=== PATIENT | female | born 2000 | race Caucasian/White ===

== ENCOUNTER 2023-06-13 11:05 | Emergency (ER) | payer SELFPAY ==
[2023-06-13 11:27] VITALS: BP 156/85; PULSE 96; RESP 16; TEMP 36.6; O2SAT 97; BMI 38.9
--- NOTE | 2023-06-13 11:29 | ED_ITS ---
HPI - General Adult General Chief complaint: General Medical Stated complaint: Headache/Back pain Time Seen by Provider: 06/13/23 13:36 Source: patient Mode of arrival: ambulatory Limitations: no limitations History of Present Illness HPI narrative: patient reports intermittent headaches, light sensitivity, nausea, nasal congestion and sneezing and lower back pain X2 days. patient reports history of similar headaches associated with nausea and light sensitivity in the past. patient notes history of lumbar spine compression fracture in the past. she reports that lower back pain occasionally flares up. she has been taking ibuprofen for her symptoms. she did not take any today. patient describes her headache as tight band on her head . she denies fever, neck pain, vomiting, cough, sore throat, ear pain, chest pain, shortness of breath, abdominal pain, urinary symptoms, numbness/tingling/ weakness of lower extremities, saddle parasthesia, changes in bowel or bladder function. her LMP was 06/09/2023. patie nt denies any known sick contacts. Related Data Previous Rx's ?Medication ?Instructions ?Recorded ondansetron 4 mg disintegrating 4 mg PO Q8H #10 tabs 06/13/23 tablet Allergies Allergy/AdvReac Type Severity Reaction Status Date / Time amoxicillin AdvReac Hives Verified 06/13/23 11:29 Review of Systems Review of Systems: as noted in HPI Yes all other systems are reviewed and are negative [facility] Social History Social History Advance Directives: No Advance Directives Information Provided: Yes Do you have a plan to hurt others: No Plan Physical Exam ED Vital Signs: Vital Signs - 24 hr 06/13/23 11:27 06/13/23 15:14 06/13/23 16:38 Temperature 97.8 F 98.2 F 98.3 F Pulse Rate 96 71 82 Respiratory Rate 16 16 16 Blood Pressure 156/85 H 115/81 136/76 Pulse Oximetry 97 100 98 Oxygen Delivery Method Room Air Room Air BMI result Body Mass Index 38.9 Const General: healthy appearing, comfortable, no acute distress, alert and awake Orientation/consciousness: patient oriented x3 Limitations: no limitations HENMT Head: Yes normal to inspection and Yes atraumatic Ears: external ears normal General nose exam: Normal external nose present Face and sinus: Yes sinuses nontender Mouth: Normal oral and palatal mucosa present, tongue normal, oropharynx normal and moist mucous membranes Eyes Pupils: Equal, round and reactive pupils present Neck Neck: Yes full ROM, Yes no lymphadenopathy and Yes no meningeal signs Resp Effort & Inspection: normal respiratory effort Auscultation: clear to auscultation bilaterally Cardio Rate: regular rate Rhythm: regular rhythm Heart sounds: S1 normal heart sound present and S2 normal heart sound present GI Inspection: Yes normal to inspection Palpation (GI): Soft to palpation and Other GI palpation findings present (no abdominal tenderness to palpation) Auscultation: normal bowel sounds General: Yes no CVA tenderness Back/Spine/Pelvis Back: no CVA tenderness Thoracic/Lumbar Spine: thoracic and lumbar spine normal to inspection Skin General skin exam: no rashes or lesions noted Neuro General: patient oriented x3, no meningeal signs, no focal motor deficits and CN's II-XI intact bilaterally Cranial nerves: Yes Equal, round and reactive pupils present, Yes Normal accommodation reflex present, Yes Bilaterally intact EOM present and Yes Nystagmus not present Cognition (Neuro): normal cognition Gait exam (Neuro): Normal gait present Motor exam (neuro): 5/5 motor strength present throughout Coordination: [id number] test normal and [id number] test normal Course Course Course Narrative: This is an RME: Additional HPI, ROS, PE not included below will be deferred to primary provider. 22 yo f presents with headaches, back pain, sneezing for 2 da ys. States nausea. Denies fevers, chills, urinary symtoms. Medications Administered Discontinued Medications Generic Name Dose Route Start Last Admin Trade Name Freq PRN Reason Stop Dose Admin Sodium Chloride 1,000 mls @ 999 mls/hr 06/13/23 14:00 06/13/23 15:05 Ns IV 06/13/23 15:00 Infused .Q1H1M MOY Infusion Ketorolac Tromethamine 15 mg 06/13/23 13:50 06/13/23 14:04 Ketorolac Tromethamine 15 Mg/Ml Vial IVPUSH 06/13/23 13:51 15 mg ONCE ONE Administration Loratadine 10 mg 06/13/23 13:53 06/13/23 14:04 Loratadine 10 Mg Tablet PO 06/13/23 13:54 10 mg ONCE ONE Administration Ondansetron HCl 4 mg 06/13/23 13:50 06/13/23 14:04 Ondansetron Hcl 4 Mg/2 Ml Vial IVPUSH 06/13/23 13:51 4 mg ONCE ONE Administration Medical Decision Making Medical Decision Making [facility] Narrative: 22 yo female who resents to the ED with complaint of headache, sneezing and back pain. HPI and physical exam as above. Upon presentation patient is hemodynamically stable, alert and oriented X3, afebrile, well appearing, neurologically intact, no acute distress. DDx include but not limited to viral illness, seasonal allergies, tension headache, migraine, sinusitis, meningitis, back strain, UTI, renal colic, cauda equina Patient is neurologically intact and has no back pain red flags; urinalysis is notable for presence of blood (patient is currently menstruating); in the absence of urinary symptoms doubt infectious etiologies. Given clinical picture and no recent trauma back pain is likely musculo-skeletal in nature. Urine culture is pending; would consider abx treatment if poistive. Viral panel is negative for flu, covid and RSV. Patient reports history of previous similar headaches. Symptoms improved after IV fluids, zofran and toradol. At this time I suspect symptoms are likely due to migraine vs tension headache. It is also likely that symptoms are exacerbated by seasonal allergies. Discussed results of evaluation and diagnosis with the patient. Advised on supportive care; advised to take OTC allergy medications such as zyrtec. Advised on proper rest and hydration. Advised on outpatient follow up and provided contact information for local primary care clinics for patient to call and establish care. Discussed with the patient when to seek immediate medical attention or return to the ED for re-evaluation. Patient expressed understanding and agrees to the treatment plan. Admission/Observation Consideration of admission/observation: Escalation of care including admission/observation considered Lab Data [facility] Lab Attestation statement: I reviewed the patient's lab results. Labs: Lab Results 06/13/23 06/13/23 Range/Units 13:38 15:23 Urine Color Yellow Urine Appearance Cloudy Urine pH 5.0 (5.0-9.0) Ur Specific Slater >= 1.030 H (1.005-1.025) Urine Protein Trace (Neg-Trace) mg/dL Urine Glucose (UA) >=1000 H (Negative) mg/dL Urine Ketones Trace (Negative) mg/dL Urine Blood Large (3+) H (Negative) Urine Nitrite Negative (Negative) Ur Leukocyte Esterase Negative (Negative) Urine RBC 6-10 H (0-2) /HPF Urine WBC 11-20 H (0-5) /HPF Ur Squamous Epith Cells 11-20 (0-2) /HPF Urine Bacteria Trace (None Seen) Hyaline Casts 3-5 (0-2) /LPF Urine Test NEGATIVE (NEGATIVE) Influenza Type A (PCR) NEGATIVE (Negative) Influenza Type B (PCR) NEGATIVE (Negative) RSV RNA Qual (PCR) NEGATIVE (Negative) SARS-CoV-2 RNA (RT-PCR) NEGATIVE (Negative) External Record Review External record reviewed: Outpatient record Prescription Management I considered prescription management with: Pain Medication and Other IV fluids Social Determinants Patient?s care significantly limited by Social Determinants of Health including: Other Social Determinant of Health No current PCP Discharge Plan Discharge Clinical Impression: Seasonal allergic reaction Headache Qualifiers: Headache type: unspecified Headache chronicity pattern: acute headache Intractability: not intractable Qualified Code(s): R51.9 - Headache, unspecified Patient Disposition: Home, Self-Care Instructions: Acute Headache (ED) Additional Instructions: Your symptoms are most likely due to migraine headache and seasonal allergies. For pain you can take Tylenol and Ibuprofen as needed. You were given prescription for zofran to take as needed for nausea. Take over the counter allergy medications such as Zyrtec. Make sure to rest, drink plenty of water to stay hydrated and eat nutritious diet. Please, call local primary care clinics to establish care with PCP for proper follow up. Return to the ED if you develop any new or concerning symptoms. Prescriptions: New ondansetron 4 mg tablet,disintegrating 4 mg PO Q8H Qty: 10 0RF Stand Alone Forms: Work/School Release Interventions: ED Discharge Assessment Last Done: 06/13/23 16:38 Discharge Date/Time: 06/13/23 16:39 Print Language: Maltese
--- NOTE | 2023-06-13 13:52 | PC.NURSE ---
nasal swab performed, pt aware we need a urine
[2023-06-13] MEDS: 0.9 % Sodium Chloride 1,000 ML 999 ML IV (14:04)
[2023-06-13] MEDS: Ketorolac Tromethamine 15 MG/ML VIAL IVPUSH (14:04)
[2023-06-13] MEDS: ondansetron HCL 4 MG/2 ML VIAL IVPUSH (14:04)
[2023-06-13] MEDS: Loratadine 10 MG TABLET PO (14:04)
--- NOTE | 2023-06-13 14:08 | PC.NURSE ---
iv inserted, pt medicated per order
[2023-06-13 14:23] LABS: Influenza A PCR NEGATIVE (Negative); Influenza B PCR NEGATIVE (Negative); Resp Syncy Virus RNA Qual PCR NEGATIVE (Negative); SARS COV2 PCR INHOUSE NEGATIVE (Negative)
[2023-06-13 15:14] VITALS: BP 115/81; PULSE 71; RESP 16; TEMP 36.8; O2SAT 100
[2023-06-13 15:34] LABS: Appearance Urine Cloudy; Color Urine Yellow; Glucose Urine UA >=1000 mg/dL (Negative); Leukocyte Esterase Urine Negative (Negative); Nitrite Urine Negative (Negative); Specific Gravity - Urine >= 1.030 (1.005-1.025); UMIC TRIGGER UACC YES; UPreg QC Valid YES; Urine Blood Large (3+) (Negative); Urine Ketones Trace mg/dL (Negative); Urine Pregnancy NEGATIVE (NEGATIVE); Urine Protein Trace mg/dL (Neg-Trace)
[2023-06-13 15:50] LABS: Bacteria Urine Trace (None Seen); UACC Culture Trigger YES
[2023-06-13 16:38] VITALS: BP 136/76; PULSE 82; RESP 16; TEMP 36.8; O2SAT 98
== END 2023-06-13 16:39 | disposition home or self-care (01) ==
PROVIDERS: Physician Assistant; Registered Nurse Emergency; Emergency Provider Student in an Organized Health Care Education/Training Program
DX: R51.9 Headache, unspecified (principal); J30.2 Other seasonal allergic rhinitis; M54.50 Low back pain, unspecified; R11.0 Nausea; Z03.818 Encounter for observation for suspected exposure to other biological agents ruled out; Z79.899 Other long term (current) drug therapy
CPT/HCPCS: 0241U; 81001; 81025; 87086; 96361; 96374; 96375; 99284; J1885; J2405

== ENCOUNTER 2023-06-21 22:55 | Emergency (ER) | payer SELFPAY ==
[2023-06-21 23:32] VITALS: BP 128/89; PULSE 97; RESP 16; TEMP 36.7; O2SAT 99; BMI 37.9
--- NOTE | 2023-06-22 03:29 | ED.SKABFB ---
HPI - Skin/Abscess/Foreign Bdy General Chief complaint: Skin/Abscess/Foreign Body Stated complaint: ? abscess on RT shoulder Time Seen by Provider: 06/22/23 03:29 Source: patient Mode of arrival: ambulatory History of Present Illness HPI narrative: 22-year-old female who presents with right shoulder abscess, states that she woke up with arm numbness, fell call today no fever, unsure of how she got the injury but states that it is painful. Related Data Previous Rx's ?Medication ?Instructions ?Recorded ondansetron 4 mg disintegrating 4 mg PO Q8H #10 tabs 06/13/23 tablet cefuroxime axetil 500 mg tablet 500 mg PO BID 5 days #10 tabs 06/22/23 doxycycline monohydrate 100 mg 100 mg PO BID 5 days #10 caps 06/22/23 capsule Allergies Allergy/AdvReac Type Severity Reaction Status Date / Time amoxicillin AdvReac Hives Verified 06/21/23 23:34 Review of Systems Review of Systems: Pertinent positives and negatives as stated in HPI PMFSH Past Medical History Source: nursing notes reviewed Social History Social History Advance Directives: No Advance Directives Information Provided: Yes Do you have a plan to hurt others: No Plan Physical Exam Vital Signs: Vital Signs: Last Vital Signs Temp 98.1 F 06/21/23 23:32 Pulse 97 06/21/23 23:32 Resp 16 06/21/23 23:32 BP 128/89 06/21/23 23:32 Pulse Ox 99 06/21/23 23:32 O2 Del Method Room Air 06/21/23 23:32 BMI result Body Mass Index 37.9 VITAL SIGNS: Reviewed. GENERAL: Well developed, well nourished, in no acute distress. HEAD: Normocephalic/atraumatic EYES: PERRLA, EOMI LUNGS: Normal breath sounds. No adventitious sounds or accessory muscle use. SpO2<99> CARDIOVASCULAR: Regular rate and rhythm without noted murmurs ABDOMEN: Soft, non-tender, non-distended with bowel sounds. MUSCULOSKELETAL: No tenderness, deformities, or effusions noted on gross inspection. EXTREMITIES: No cyanosis, clubbing or edema. RIGHT SHOULDER: There is a 1.5 cm area of erythema with opening that appears to be draining, no noted fluctuance SKIN: Inspection of the skin reveals no rashes NEUROLOGIC: Alert and oriented x 4. Strength and sensation to light touch were grossly intact x 4. Medical Decision Making Medical Decision Making MDM Narrative: This is a 22-year-old female who is not diabetic and has a small area of infection, will treat with combination antibiotics and discharge. Differential Diagnosis Differential Diagnoses: The differential diagnosis associated with the presentation includes Please see the discussion above Admission/Observation Consideration of admission/observation: Escalation of care including admission/observation considered Please see the discussion above Discharge Plan Discharge Clinical Impression: Abscess of skin or subcutaneous tissue Patient Disposition: Home, Self-Care Instructions: Abscess (ED), Warm Compress or Soak (ED) Additional Instructions: Complete the entire course of antibiotics as prescribed. Recommend warm compresses to the right shoulder 2 to 3 times a day as possible. Recommend [id number] Tylenol/ibuprofen as needed for pain control. Follow-up with your primary care doctor in the next 2-3 days. Return to the ER for any worsening symptoms. Prescriptions: New doxycycline monohydrate 100 mg capsule 100 mg PO BID 5 Days Qty: 10 0RF cefuroxime axetil 500 mg tablet 500 mg PO BID 5 Days Qty: 10 0RF No Action ondansetron 4 mg tablet,disintegrating 4 mg PO Q8H Qty: 10 0RF Print Language: Singaporean
[2023-06-22] MEDS: Acetaminophen 325 MG TABLET 975 MG PO (03:43)
[2023-06-22] MEDS: Doxycycline Monohydrate 100 MG CAPSULE PO (03:43)
[2023-06-22] MEDS: cefuroxime axetiL 500 MG TABLET PO (03:43)
[2023-06-22] MEDS: Ibuprofen 400 MG TABLET PO (03:44)
[2023-06-22 03:48] VITALS: BP 128/86; PULSE 88; RESP 16; TEMP 36.8; O2SAT 99
== END 2023-06-22 03:49 | disposition home or self-care (01) ==
PROVIDERS: Emergency Provider Student in an Organized Health Care Education/Training Program
DX: L02.413 Cutaneous abscess of right upper limb (principal)
CPT/HCPCS: 99283